=== PATIENT | female | born 1980 | race Caucasian/White ===

== ENCOUNTER 2018-12-13 11:55 | Inpatient (IN) | payer OTHER ==
[2018-12-13] MEDS ORDERED: Lactated Ringers 1000 ML Bag* 1,000 ML IV ONE (13:50)
[2018-12-13] MEDS ORDERED: Buffered Lidocaine 1% SYRIN* 1 ML/SYRINGE INTRADERM ONE (13:50)
[2018-12-13] MEDS ORDERED: Dinoprostone* 10 MG VAG.SUPP VAGINAL ONE (13:50)
[2018-12-13] MEDS ORDERED: Lactated Ringers 1000 ML Bag* 1,000 ML IV SCH (14:00)
--- NOTE | 2018-12-13 14:06 | HP ---
General Information - Reason for Visit Pt denies regular ctx, reports + bloody show, denies LOF. BS: WNL - General Information Maternal Age: 38 Grav: 1 Para: 0 SAB: 0 IEA: 0 Estimated Due Date: 12/13/18 Determined By: LMP Gestational Age in Weeks/Days: 40 weeks Maternal Blood Type and Rh: O Positive - Results this Serology/RPR Result: Non-Reactive Rubella Result: Immune HBsAg Result: Negative HIV Result: Negative GBS Culture Result: Negative Past Medical History Pertinent Past Medical History: Non-Contributory Pertinent Past Surgical History: See Records - removal of sewing needle from finger Pertinent Family History: See Records - uterine CA, throat and lung CA , high chol, ovarian CA - Antepartal Records Antepartal Records: Reviewed, Complicated by: - AMA,low lying placenta , gestational diabetes diet controlled Review of Systems Constitutional: Comfortable CV Complaint: No Respiratory: Shortness of Breath: No Gastrointestinal: No Nausea/Vomiting, Normal Bowel Movement Genitourinary: No Dysuria, No Bleeding, No Leaking Fluid Musculoskeletal: No Complaint, No Epigastric Pain Neurological: No Headache Movement: Normal Exam T:97.6, P110, R:20, BP: 121/92, O2:98% - Measurements Height: 5 ft 3 in Weight: 180 lb Weight in lbs: [id number] Body Mass Index (BMI): 31.8 Pre- Weight: 160 lb Weight Gained This : 20 lbs and 0 ozs - Exam Breast: Breast Exam Deferred CVA: No CVA Tenderness Extremities: No Edema Heart: Normal Rhythm/Heart Sounds HEENT: No Significant Findings Lungs: Clear Bilaterally Rectal: Rectal Exam Deferred Reflexes: DTR 2+ Thyroid: No Thyromegaly - Abdominal Exam Abdomen Exam: Non-Tender, Fundal Height Consistent with Dates - Ultrasound/Biophysical Profile Ultrasound Status: Not Done Targeted Exam Findings Estimated Weight: 8lbs Cervical Exam: 3cm Effacement: 80% Station: -1 Presenting Part: Vertex Membrane Status: Bulging Bleeding/Discharge: Bloody Show EFM Findings - External Monitor Findings Baseline Heart Rate: 135 External Monitor Findings: Accelerations Present, No Pattern of Variable or Late Decelerations, Variability Moderate, Baseline Stable Contractions: Irregular, Mild, < 45 Seconds Assessment/Plan - Assessment 38 y.o. , 40wks EGA, Gestational Diabetes diet controlled, AMA, induction of labor - Plan Plan: Induction - Date/Time of Admission Date of Admission: 12/13/18 Time of Admission: 14:30
--- NOTE | 2018-12-13 21:57 | PN ---
Progress Note - Progress Note Date of Service: 12/13/18 SOAP: Subjective: Pt reports contractions increasing in frequency and intensity. +FM, -LOF, -VB Objective: 150 bpm, + accels, occasional variables, moderate variability cervical exam declined BP:126/78, P:88, R:16, T:99.4 Assessment: 38 y.o. , gestational diabetes, 40w, Cat I NST Plan: 1) Continue current care 2) Therapeutic rest 3) Reevaluate in Am or sooner PRN
[2018-12-13] MEDS ORDERED: Nalbuphine* 10 MG/ML 1 ML VIAL IM PRN (23:52)
[2018-12-13] MEDS ORDERED: Promethazine INJ(RESTRICTED)* 25 MG/ML 1 ML VIAL IM PRN (23:52)
--- NOTE | 2018-12-14 09:22 | PN ---
Progress Note - Progress Note Date of Service: 12/14/18 SOAP: Subjective: Pt reports contractions every 6 minutes, she is coping well by breathing through them but is considering getting an epidural, will try nitrous first. + LOF, -VB, +FM. Objective: FHR: 135bpm, + accels, occasional variables, moderate variability ctx q 3min cervix: 90/0 Assessment: 38 y.o. , active labor, Cat I NST Plan: 1) frequent monitoring 2) labor support 3) Anticipate vaginal delivery
--- NOTE | 2018-12-14 18:43 | PN ---
Progress Note - Progress Note Date of Service: 12/14/18 SOAP: Subjective: Pt reports contractions have increased after nipple stimulation and hydrotherapy. Pt requesting pain medication, will start with nitrous but is considering epidural. Objective: 129/83, P:113, R:18, T:99.2 FHR: 150bpm Assessment: 38 y.o. , active labor Plan: 1) Nitrous 2) labor support 3) Anticipate vaginal delivery
[2018-12-14] MEDS ORDERED: OBEPIDURAL* 250 ML EPIDURAL ONE (19:46)
[2018-12-14 19:47] LABS: Hematocrit 36 % (35-47); Hemoglobin 12.1 g/dL (12.0-16.0); Mean Corpuscular HGB Conc 33 g/dL (31-36); Mean Corpuscular Hemoglobin 30 pg (27-31); Mean Corpuscular Volume 90 fL (80-97); Mean Platelet Volume 8.4 fL (7.4-10.4); Platelet Count 361 10^3/uL (150-450); Red Cell Distribution Width 14 % (10.5-15); White Blood Count 24.5 10^3/uL (3.5-10.8)
[2018-12-14 20:08] LABS: ABS Basophils 0.1 10^3/ul (0-0.2); ABS Lymphocytes 1.8 10^3/ul (1.0-4.8); ABS Monocytes 1.7 10^3/ul (0-0.8); Eosinophil % 0.2 %; Lymphocyte % 7.2 %; Nucleated Red Blood Cells % 0.1
[2018-12-14] MEDS ORDERED: Phenylephrine 40 MCG/ML SYRINGE IV PUSH PRN ×2 (21:09)
[2018-12-14] MEDS ORDERED: EPHEDrine (Pressors)* 50 MG/ML VIAL IV PUSH PRN ×2 (21:09)
[2018-12-14] MEDS ORDERED: Sodium Citrate/Citric Acid* 15 ML UDC PO PRN (21:09)
[2018-12-14] MEDS ORDERED: Lactated Ringers 1000 ML Bag* 1,000 ML IV ONE (21:09)
[2018-12-14] MEDS ORDERED: Famotidine TAB* 20 MG PO PRN (21:09)
[2018-12-14] MEDS ORDERED: Lactated Ringers 1000 ML Bag* 500 ML IV PRN ×2 (21:09)
[2018-12-14] MEDS ORDERED: Lactated Ringers 1000 ML Bag* 1,000 ML IV SCH (22:00)
[2018-12-14] MEDS ORDERED: OBEPIDURAL* 250 ML EPIDURAL SCH (22:00)
[2018-12-14] MEDS ORDERED: Oxytocin in LR* 20 UNITS/1,000 ML BAG IVPB ONE (22:02)
[2018-12-15] MEDS ORDERED: Dibucaine 1% 28.35 GM TUBE PR PRN (01:35)
[2018-12-15] MEDS ORDERED: Glycerin ADULT SUPP PR PRN (01:35)
[2018-12-15] MEDS ORDERED: Witch Hazel PAD* JAR TOPICAL PRN (01:35)
--- NOTE | 2018-12-15 01:37 | PROCNOTE ---
[facility] OB: Delivery Note - Delivery A Date of : 12/15/18 Time of : 01:09 Sex: Female Score 1 Minute: 8 Score 5 Minutes: 9 Gestational Age in Weeks and Days at Delivery: 40 Weeks and 2 Days Delivery Method: Spontaneous Vaginal Labor: Induced Amniotic Fluid: Meconium Estimated Blood Loss: 200 Anesthesia/Analgesia: CEI for Labor Delivered By: Ronna Koroma - Nursery Level of Nursery: Regular/Bedside - Perineum Perineal Injury: Perineal Laceration, 1st Degree Perineal Repair: By Delivering Practioner - Events Delivery Events of Note: Pitocin Only After Delivery
[2018-12-15] MEDS ORDERED: Lactated Ringers 1000 ML Bag* 1,000 ML IV SCH (02:00)
[2018-12-15] MEDS: Acetaminophen TAB* 325 MG PO PRN ×2 (03:58→21:17)
[2018-12-15] MEDS ORDERED: Lidocaine 1% INJ* 10 MG/ML 30 ML SDV ONE (04:08)
[2018-12-15] MEDS ORDERED: Simethicone TAB* 80 MG TAB.CHEW PO SCH (08:30)
[2018-12-15] MEDS: Docusate CAP* 100 MG PO SCH ×3 (09:41→21:17)
[2018-12-15] MEDS: Ibuprofen TAB* 600 MG PO PRN ×2 (09:44→16:45)
[2018-12-16] MEDS: Ibuprofen TAB* 600 MG PO PRN ×3 (02:31→15:11)
[2018-12-16 08:15] LABS: ABS Basophils 0.1 10^3/ul (0-0.2); ABS Eosinophils 0.4 10^3/ul (0-0.6); ABS Monocytes 0.8 10^3/ul (0-0.8); Eosinophil % 2.3 %; Hematocrit 32 % (35-47); Hemoglobin 10.6 g/dL (12.0-16.0); Lymphocyte % 21.9 %; Mean Corpuscular HGB Conc 33 g/dL (31-36); Mean Corpuscular Hemoglobin 30 pg (27-31); Mean Corpuscular Volume 91 fL (80-97); Mean Platelet Volume 7.6 fL (7.4-10.4); Nucleated Red Blood Cells % 0.1; Platelet Count 304 10^3/uL (150-450); Red Blood Count 3.53 10^6 /uL (3.70-4.87); Red Cell Distribution Width 14 % (10.5-15); White Blood Count 18.3 10^3/uL (3.5-10.8)
[2018-12-16] MEDS: Docusate CAP* 100 MG PO SCH ×2 (08:52→15:11)
[2018-12-16] MEDS ORDERED: Ferrous Gluconate TAB* 324 MG TAB PO SCH (09:00)
--- NOTE | 2018-12-16 09:47 | PTEDU ---
Patient Name: DONALD VARNER DONALD VARNER selected video: Never Ever Shake a Baby to view on 12/16/2018 at 9:46:54 AM from [facility] [id number]
--- NOTE | 2018-12-16 09:56 | PTEDU ---
Patient Name: DONALD VARNER DONALD VARNER selected video: BBOB: Bonding Through Infant Massage to view on 12/16/2018 at 9:56:1 0 AM from [id number]
[2018-12-16 10:11] VITALS: BP 117/79
== END 2018-12-16 19:35 | disposition home or self-care (01) | DRG 807 ==
LOC: MCHOBOUT 11:55 → MCHOB 22:58
PROVIDERS: ADMIT Midwife; ATTEND Midwife
PROC: 4A1HXCZ Monitoring of Products of Conception, Cardiac Rate, External Approach (ICD-10-PCS; 2018-12-13)
PROC: 3E0P7VZ Introduction of Hormone into Female Reproductive, Via Natural or Artificial Opening (ICD-10-PCS; 2018-12-13)
PROC: 10E0XZZ Delivery of Products of Conception, External Approach (ICD-10-PCS; principal; 2018-12-15)
PROC: 0HQ9XZZ Repair Perineum Skin, External Approach (ICD-10-PCS; 2018-12-15)
DX: O24.420 Gestational diabetes mellitus in childbirth, diet controlled (principal); Z37.0 Single live birth; O69.89X0 Labor and delivery complicated by other cord complications, not applicable or unspecified; O77.0 Labor and delivery complicated by meconium in amniotic fluid; O70.0 First degree perineal laceration during delivery; Z3A.40 40 weeks gestation of pregnancy; Z88.0 Allergy status to penicillin
CPT/HCPCS: 36415; 59200; 84112; 85025; 86850; 86900; 86901; A9270-GY; J2300; J2550